=== PATIENT | female | born 1955 | race Caucasian/White ===

== ENCOUNTER 2016-09-21 20:35 | Emergency (ER) | payer MEDICARE, SELFPAY ==
--- NOTE | ~2016-09-21 | ER ---
PATIENT'S NAME: [facility] AGE: 61 Y [address] ROOM: [place] [id number] LOCATION: [facility] ADMIT DATE: 09/21/2016 ER/Outpatient Report DISCHARGE DATE: 09/21/2016 FAMILY PHYSICIAN: Marcelo Woodson MD ATTENDING PHYSICIAN: Nils Hurst Admission date and time documented on the medical record. I saw the patient at 2050 hours. CHIEF COMPLAINT: Ground-level fall, hit head. HISTORY OF PRESENT ILLNESS: The patient is a 61-year-old female, who had a ground-level fall about 1 hour prior to admission to the emergency room. The patient lost balance and fell backwards, hit the back of her head on the floor of her house. She suffered a laceration to the occipital scalp. Fall was unwitnessed, unknown exactly what initiated the fall. No loss of consciousness. The patient was brought to the emergency room by paramedics by ambulance for evaluation. On arrival, the patient was awake and responsive. She seemed a little bit drugged and according to the daughter, she does use marijuana. She was found out at [place] looking in people's windows. Daughter was called. Daughter took her home and then she fell after that. The patient has occipital head pain and some neck pain. Also, has some low back pain. Denies any chest pain, shortness of breath. No abdominal pain. The patient was not nauseated. She had no vomiting, diarrhea, or urinary frequency, urgency, or dysuria. The patient was not incontinent. The patient denies any extremity pain. No skin eruptions or rash. Does have zdf-effeckm-pmvhyjjzv diabetes mellitus type 2. She has bipolar disorder with depression and anxiety. She has had suicidal ideation attempt in the past. No seizure disorder, CVA, or TIA. No known history of dementia. The patient denies any dizziness or lightheadedness. No other trauma. No recent colds, coughs, flus, fever, chills, or sweats. No eyes, ears, nose, or throat pain. HOME MEDICATIONS: See attached medication list. ALLERGIES: NONE. SOCIAL HISTORY: Nonsmoker. Nondrinker. Does use marijuana. SIGNIFICANT PAST MEDICAL HISTORY: Atherosclerotic ischemic heart disease with coronary artery disease, [facility] 61 Y [address] ROOM: [place], [place] [address] LOCATION: [facility] ADMIT DATE: 09/21/2016 ER/Outpatient Report DISCHARGE DATE: 09/21/2016 FAMILY PHYSICIAN: Marcelo Woodson MD ATTENDING PHYSICIAN: iNls Hurst obstructive sleep apnea, degenerative osteoarthritis, anxiety, depression, bipolar disorder, gastroesophageal reflux, neuropathic foot pain, non-insulin- dependent diabetes mellitus type 2, dyslipidemia, remote tobacco abuse. The patient uses marijuana, hepatitis C, past history of suicidal ideation and attempt. OPERATIONS: Appendectomy, hysterectomy, cholecystectomy, gastric sleeve procedure, cardiac catheterization, tonsillectomy, adenoidectomy, bilateral total knee arthroplasty. REVIEW OF SYSTEMS: All systems reviewed by me are negative with the exception of those discussed in the history of present illness. PHYSICAL EXAMINATION: VITAL SIGNS: Temperature 97.3, pulse 59, respirations 16, blood pressure 142/68, O2 saturation on room air is 98%. HEENT: Head: Normocephalic. The patient has kind of about a 2 cm horizontal occipital scalp skin tear. This was staple closed with 4 contreras. The patient tolerated the procedure well. Face is intact. Eyes: Extraocular muscles are intact. PERRL. Ears, Nose, Throat: Clear. Mucous membranes are moist. NECK: Negative. SPINE: Negative. I did not elicit any tenderness to palpation, although she does complain of some posterior neck and lower back pain. ABDOMEN: Soft, nondistended, nontender. Good bowel tones. No organomegaly or abnormal masses palpable. EXTREMITIES: She moves all 4 extremities. No peripheral edema, cyanosis, or deformity. NEURO: Cranial nerves appear to be intact. No lateralizing sign. The patient is awake, cooperative. Motor and sensory intact. SKIN: Clear. No skin eruptions or rash. Does have the occipital scalp plaque. IMAGING: CT scan of the head show no intracranial bleed, midline shift, mass effect, or skull fracture. CT scan of the cervical, thoracic, lumbosacral spine showed no acute fracture or subluxation. Chest x-ray showed no acute infiltrate or changes. Pelvis showed no fracture. Left hip x-rays showed no fracture. All CT scans were read by Radiology, see dictated and transcribed report. All plain films will be reviewed by the radiologist. IMPRESSION: 1. Ground-level fall with 2 cm occipital scalp laceration with staple PATIENT'S NAME: AMOL MARTINO [facility] AGE: 61 Y [address] ROOM: [place], [place] [address] LOCATION: [facility] ADMIT DATE: 09/21/2016 ER/Outpatient Report DISCHARGE DATE: 09/21/2016 FAMILY PHYSICIAN: Marcelo Woodson MD ATTENDING PHYSICIAN: Nils Hurst closure. Found no abnormality on CT scan of the head and the spine. There is no pelvic or hip fracture and no abnormalities with the chest. No other abnormalities were found on physical exam. 2. The patient does have a history of anxiety, depression, and bipolar disorder. 3. History of [id number]-dqrwcriki diabetes mellitus type 2. 4. Dyslipidemia. 5. Atherosclerotic ischemic heart disease with coronary artery disease. 6. Obstructive sleep apnea. 7. Degenerative osteoarthritis. 8. Past history of hepatitis C. PLAN: The patient dismissed home on observation. Activity as tolerated. Continue present home medications and care. Keep wounds clean. Watch for infection. Percocet as needed for pain 5/325, #12. Follow up with personal physician in 10-14 days for staple removal. See personal physician sooner if needed. Discussion ensued with the patient concerning my findings and recommendations, she understands. MD LU JOYCE/modl /[id number] d: 09/22/16 0421 t: 09/22/16 182, OUTPATIENT REPORT
[2016-09-21 21:32] LABS: BASOPHIL # 0.1 K/uL (0.0-0.2); BASOPHIL % 0.8 %; EOSINOPHIL # 0.1 K/uL (0.0-0.5); HEMATOCRIT 37.8 % (33.0-46.0); HEMOGLOBIN 12.5 g/dL (10.0-15.0); IMMATURE GRANULOCYTE % 0.2 %; LYMPHOCYTE # 2.3 K/uL (0.8-4.0); LYMPHOCYTE % 35.3 %; MCH 30.3 pg (27.0-34.0); MCHC 33.1 gm/dL (32.0-36.5); MCV 91.7 fl (83.0-98.0); MONOCYTE # 0.5 K/uL (0.0-1.0); MONOCYTE % 8.1 %; MPV 10.5 fl (9.4-12.4); NEUTROPHIL # (ANC) 3.5 K/uL (1.8-7.8); NEUTROPHIL % 53.6 %; NRBC % 0 /100WBC (0-0.00); PLATELET COUNT 139 K/uL (150-450); RBC 4.12 M/uL (3.50-5.50); RDW-CV 14.4 % (11.9-14.6); WBC 6.5 K/uL (4.0-11.0)
[2016-09-21 21:46] LABS: ALBUMIN 3.7 gm/dL (3.5-5.0); ALK PHOS 132 IU/L (33-138); ALT 13 IU/L (12-78); ANION GAP 9.6 (10.0-19.0); AST 12 IU/L (10-40); BLOOD UREA NITROGEN 20 mg/dL (6-24); CALCIUM 8.7 mg/dL (8.5-10.5); CHLORIDE 113 mMol/L (96-110); CO2 25 mMol/L (22-32); CREATININE 0.9 mg/dL (0.5-1.1); ESTIMATED GFR (MDRD EQUATION) > 60; POTASSIUM 3.6 mMol/L (3.7-5.1); SODIUM 144 mMol/L (135-145); TOTAL BILIRUBIN 0.2 mg/dL (0.0-1.5); TOTAL PROTEIN 6.6 g/dL (6.0-8.4)
== END 2016-09-21 22:20 | disposition disaster alternative care site (69) ==
LOC: GMED 20:35
PROVIDERS: Emergency Medicine
PROC: 0HQ0XZZ Repair Scalp Skin, External Approach (ICD-10-PCS; principal; 2016-09-21)
DX: S01.01XA Laceration without foreign body of scalp, initial encounter (principal); E11.9 Type 2 diabetes mellitus without complications; E78.5 Hyperlipidemia, unspecified; I25.10 Atherosclerotic heart disease of native coronary artery without angina pectoris; G47.33 Obstructive sleep apnea (adult) (pediatric); M19.90 Unspecified osteoarthritis, unspecified site; F31.9 Bipolar disorder, unspecified; W01.10XA Fall on same level from slipping, tripping and stumbling with subsequent striking against unspecified object, initial encounter; Y92.009 Unspecified place in unspecified non-institutional (private) residence as the place of occurrence of the external cause

== ENCOUNTER → 2016-09-21 | Outpatient (CLI) | payer MEDICARE ==
[~2016-09-21] MED LIST: ARIPIPRAZOLE10 MG PO; ASPIRIN LO-DOSE81 MG PO; ATIVAN 0.5MG0.5 MG PO; CRESTOR5 MG PO; ESOMEPRAZOLE MA40 MG PO; HYDRODIURIL25 MG PO; KLONOPIN1 MG PO; LAMICTAL200 MG PO; LATUDA80 MG PO; LEVAQUIN 750 M750 MG PO; LEXAPRO20 MG PO; LINZESS290 MCG PO; MYRBETRIQ50 MG PO; NAPROSYN500 MG PO; NEURONTIN300 MG PO; NEXIUM40 MG PO; PRINIVIL OR ZES10 MG PO; SEROQUEL XR300 MG PO; SEROQUEL XR400 MG PO; SEROQUEL200 MG PO; TOBREX5 ML OPHTH; ULTRAM50 MG PO; VISTARIL50 MG PO; ZOCOR20 MG PO; ZOLOFT100 MG PO; ZOLOFT50 MG PO
== END | disposition disaster alternative care site (69) ==
LOC: GAMB 20:18
DX: S06.9X9A Unspecified intracranial injury with loss of consciousness of unspecified duration, initial encounter (principal); S01.81XA Laceration without foreign body of other part of head, initial encounter; M54.2 Cervicalgia; R51 Headache; R29.6 Repeated falls; W19.XXXA Unspecified fall, initial encounter
CPT/HCPCS: A0425; A0429

== ENCOUNTER 2016-09-26 08:04 | Emergency (ER) | payer MEDICARE ==
--- NOTE | ~2016-09-26 | ER ---
PATIENT'S NAME: AMOL MARTINO [facility] AGE: 61 Y [address] ROOM: [place] [address] LOCATION: ED ADMIT DATE: 09/26/2016 ER/Outpatient Report DISCHARGE DATE: 09/26/2016 FAMILY PHYSICIAN: Marcelo Woodsno MD ATTENDING PHYSICIAN: Roland Soliman CHIEF COMPLAINT: Suture removal. HISTORY OF PRESENT ILLNESS: The patient was in the ER, several days ago had contreras placed in her scalp after a scalp wound. She had a recent one and did have another fall. She states she has been doing well and has no other complaints today. She is moving to [place] today and that is why she stopped here to see the primary care office. PAST MEDICAL HISTORY: Documented on the record and has been reviewed by me. SOCIAL HISTORY: Documented on the record and has been reviewed by me. MEDICATIONS: Documented on the record and has been reviewed by me. ALLERGIES: DOCUMENTED ON THE RECORD AND HAS BEEN REVIEWED BY ME. REVIEW OF SYSTEMS: All systems reviewed and negative except as noted in the HPI. PHYSICAL EXAMINATION: VITAL SIGNS: Vital signs on arrival, blood pressure 127/65, pulse 72, respiratory rate is 18, temperature 97.4, SpO2 is 96% on room air. GENERAL: Age-appropriate female, in no obvious pain or distress, sitting upright in the exam table. NEURO: GCS 15. HEENT: The posterior scalp at the occiput does have [address] This was covered by a crust like substance with decreased hair growth. No clear signs of infection or maceration. The wound appears to be well healed. There is some scant bleeding after cleaning the scabbed to expose the contreras adequately. No other acute findings. Eyes are PERRL. Oropharynx is clear. NECK: Supple. Trachea is midline. CHEST: Normal to inspection. Even and unlabored respirations. Peripheral pulses are regular. PATIENT'S NAME: AMOL MARTINO [facility] AGE: 61 Y [address] ROOM: [place] [address] LOCATION: [facility] ADMIT DATE: 09/26/2016 ER/Outpatient Report DISCHARGE DATE: 09/26/2016 FAMILY PHYSICIAN: Marcelo Woodson MD ATTENDING PHYSICIAN: Roland Soliman EXTREMITIES: Warm and well perfused. LABS AND X-RAYS: None. IMPRESSION: Staple removal. EMERGENCY DEPARTMENT COURSE: The patient was seen and evaluated as above. Four contreras were removed. There was scant bleeding after cleaning of the wound, but good granulation tissue was noted. I am recommending topical antibiotic which was placed in the emergency department until the wound was completely healed. No other acute issues at this time. She should follow up with a local provider at her new place of residence within the week if not improving. She should be seen immediately, if there is any significant bleeding or if the wound separates. Although, I do not expect that happened. All questions were answered. The patient was discharged in good condition. MD SALOME BARRY/tina /[id number] d: 09/26/16 1138 t: 09/28/16 1044, OUTPATIENT REPORT
== END 2016-09-26 08:29 | disposition disaster alternative care site (69) ==
LOC: GMED 08:04
DX: S01.01XD Laceration without foreign body of scalp, subsequent encounter (principal); W19.XXXD Unspecified fall, subsequent encounter